=== PATIENT | male | born 1950 ===

== ENCOUNTER 2017-03-07 21:04 | Emergency (ER) | payer BC ==
[2017-03-07 21:33] LABS: BASOPHILS 0.5 % (0.0-2.0); EOSINOPHILS 1.3 % (0.0-6.0); EOSINOPHILS# 0.1 X 10^3uL (0.0-0.4); HEMATOCRIT 46.3 % (42.0-54.0); LYMPHOCYTES 28.5 % (20.0-40.0); LYMPHOCYTES# 1.6 X 10^3uL (0.8-3.8); MEAN CELL VOLUME 92.8 fL (80.0-100.0); MEAN CORPUS. HGB CONCENTRATION 34.6 g/dL (32.0-36.0); MEAN CORPUSCULAR HEMOGLOBIN 32.1 pg (29.0-35.0); MEAN PLATELET VOLUME 7.1 fL (7.4-10.4); MONOCYTES 16.8 % (2.0-10.0); MONOCYTES# 0.9 X 10^3uL (0.2-1.0); NEUTROPHILS 52.9 % (54.0-75.0); PLATELET COUNT 241 X 10^3uL (130-440); RED BLOOD COUNT 4.99 X 10^6uL (4.20-6.10); RED CELL DISTRIBUTION WIDTH 11.6 % (11.5-14.5); WHITE BLOOD COUNT 5.6 X 10^3uL (3.9-10.7)
[2017-03-07] MEDS ORDERED: NITROGLYCERIN 0.4 MG TAB.SUBL SUBLINGUAL ONE (21:36)
[2017-03-07] MEDS ORDERED: NORMAL SALINE 500 ML IV ONE (21:37)
[2017-03-07 21:48] LABS: BLOOD UREA NITROGEN 9 mg/dL (9-20); CALCIUM 9.5 mg/dL (8.4-10.2); CHLORIDE 102 mmol/L (98-107); EST GLOMERULAR FILTRATION RATE > 60 mL/min; GLUCOSE 112 mg/dL (70-100); MAGNESIUM 2.2 mg/dL (1.6-2.3); SODIUM 141 mmol/L (137-145)
[2017-03-07] MEDS ORDERED: NITROGLYCERIN OINT 1 GM PACKET ONE (21:57)
[2017-03-07] MEDS ORDERED: MAG-AL PLUS XS SUSP 30 ML UDC ONE (21:57)
[2017-03-07] MEDS ORDERED: LIDOCAINE VISCOUS 2% 15 ML UDC ONE (21:57)
[2017-03-07 22:00] LABS: TROPONIN I < 0.012 ng/mL (0.00-0.034)
--- NOTE | 2017-03-08 00:58 | ER NURSING DOCUMENTATION ---
Nurse's Notes [facility] Name:Miguelito Hernandez Age:66 yrs Sex:Male :1950 Arrival Date:03/07/2017 Time:21:03 BedTrauma-C Private MD: Diagnosis:Chest Pain;Non-Cardiac Chest Pain;Esophageal Spasm Presentation: 03/07 21:44 Presenting complaint: Patient states: Midsternal chest pain began today. No radiation. tg No SOB. Transition of care: patient was not received from another setting of care. AIR CAT ACTIVATION no. Asprin Given Given in ED 162 mg po. 21:44 Acuity: SHAHBAZ 2 tg 21:44 Method Of Arrival: Private Vehicle tg Triage Assessment: 09:05 General: Appears in no apparent distress, Behavior is cooperative, pleasant. Pain: tg Complains of pain in mid-sternal area Pain does not radiate. Quality of pain is described as dull. Neuro: Level of Consciousness is awake, alert. Cardiovascular: Capillary refill < 3 seconds Rhythm is sinus rhythm. Respiratory: Respiratory effort is even, unlabored, Breath sounds are clear bilaterally. GI: Denies nausea, Pt has had a richer diet than usual lately. Derm: Skin is dry, Skin temperature is warm. Historical: - Allergies: No known drug Allergies; - Home Meds: 1. Toprol XL Oral - PMHx: HYPERTENSION; - PSHx: KNEE SURGERY; - Tetanus: < 10 years. - Ebola Screening: : Patient negative for fever greater than or equal to 101.5 degrees Fahrenheit, and additional compatible Ebola Virus Disease symptoms. Patient denies exposure to infectious person. Patient denies travel to an Ebola-affected area in the 21 days before illness onset. No symptoms or risks identified at this time. . - Immunization history: Flu Vaccine unknown. - Social history: Smoking status: Patient states was never smoker of tobacco. Screenin:49 Infectious Disease Risk Unable to Obtain. Abuse screen: Denies threats or abuse. Denies tg injuries from another. Nutritional screening: No deficits noted. Assessment: 22:34 See Triage Assessment done by same RN. tg 03/08 00:56 Pain: Pain began. bw2 Vital Signs: 03/07 21:00 BP 180 / 92; Pulse 91; Resp 18; Temp 98(O); Pulse Ox 94% on R/A; Weight 77.11 kg (R); tg Height 5 ft. 6 in. (167.64 cm) (R); Pain 2/10; 21:06 Pulse 91 MON; Resp 20; Pulse Ox 94% ; tg 21:24 BP 139 / 93 (auto/); tg 21:45 BP 124 / 85 (auto/); tg 21:46 Pulse 81 MON; Resp 21; Pulse Ox 95% ; tg 22:00 BP 146 / 85 (auto/); tg 22:01 Pain 1/10; tg 22:01 Pulse 96 MON; Resp 32; Pulse Ox 93% ; tg 22:30 BP 126 / 80 (auto/); tg 22:31 Pulse 86 MON; Resp 20; Pulse Ox 94% ; tg 03/08 00:55 BP 133 / 78; Pulse 70; Resp 18; Temp 98(O); Pulse Ox 95% on R/A; Pain 0/10; bw2 03/07 21:00 Body Mass Index 27.44 (77.11 kg, 167.64 cm) tg Latta Coma Score: 03/07 21:47 Eye Response: spontaneous(4). Verbal Response: oriented(5). Motor Response: obeys cd commands(6). Total: 15. ED Course: 21:02 EKG done. (by ED staff). Reviewed by Chino Vasques MD. tg 21:03 Patient arrived in ED. em3 21:06 Chino Vasques MD is Attending Physician. cd 21:20 Inserted peripheral IV: 22 gauge in right antecubital area Missed attempts: 20 gauge X tg 1 Bleeding controlled, band aid applied, catheter tip intact. 21:29 Chuy Sanabria RN is Primary Nurse. tg 21:44 Triage completed. tg 21:50 Oxygen Oxygen administration via nasal cannula @ 2L/min. tg 21:50 Valuables Remains with patient. front desk monitor on. Pulse ox on. tg 22:35 Report given to SCAR Mullen. tg 23:19 EKG done. (by ED staff). Reviewed by Chino Vasques MD. em3 Administered Medications: 21:29 Drug: Aspirin Chewable Tablet 162 mg; Route: PO; tg 21:52 Follow up: Response: No adverse reaction tg 21:30 Drug: Nitroglycerin 0.4 mg; Route: Sublingual; tg 21:51 Follow up: Response: No adverse reaction; No change in condition tg 21:30 Drug: NS 0.9% 500 ml; Route: IV; Rate: bolus; Site: right antecubital; Delivery: tg [place] Tubing; 22:34 Follow up: IV Status: Completed infusion; IV Intake: 500ml tg 21:45 Drug: GI Cocktail w/o Donnatol - (Maalox Suspension 30 ml, Lidocaine Liquid 2 % 15 ml); tg Route: PO; 22:01 Follow up: Pain 09/22 Adult; Response: Pain is decreased tg 03/08 00:52 CANCELLED (Physician Discretion): omeprazole Delayed Release Capsule 20 mg PO once cd Intake: 03/07 22:34 IV: 500ml; Total: 500ml. tg Outcome: 03/08 00:31 Discharge ordered by . cd 00:55 Discharged to home ambulatory, with family. bw2 00:55 Condition: good 00:55 Discharge Assessment: Patient awake, alert and oriented x 3. No cognitive and/or functional deficits noted. Patient verbalized understanding of disposition instructions. 00:55 Discharge instructions given to patient, Instructed on discharge instructions, follow up and referral plans. Demonstrated understanding of instructions, Prescriptions given X 1. 00:56 Patient left the ED. bw2 09:59 Discharge F/U Call: Unable to reach: no answer lp Signatures: Chuy Sanabria RN RN Stephanie Collins RN RN Chino Vasques MD MD cd Meiklejohn, Eric 3 Paz Rodríguez bw2
--- NOTE | 2017-03-08 00:58 | ER PHYSICIAN DOCUMENTATION ---
Physician Documentation [facility] Name:Miguelito Hernandez Age:66 yrs Sex:Male :1950 Arrival Date:03/07/2017 Time:21:03 BedTrauma-C Private MD: Chino Wong Disposition: 03/08 00:30 Critical Care: not applicable. cd Disposition: 03/08/17 00:31 Discharged to Home/Self Care. Impression: Chest Pain, Non-Cardiac Chest Pain, Esophageal Spasm. - Condition is Good. - Discharge Instructions: CHEST PAIN, Noncardiac, ESOPHAGEAL SPASM. - Prescriptions for omeprazole 20 mg Oral capsule,delayed release(DR/EC) - take 1 capsule by ORAL route once daily; 20 capsule. - Medical Reconciliation form form. - Follow up: Private Physician; When: 7 - 10 days; Reason: Recheck today's complaints, Continuance of care. - Problem is new. - Symptoms are resolved. - Notes: Drink plenty of fluids. Omeprazole 20mg by mouth every day for 14 days. Low fat diet....avoid onions, chocolate, fatty foods and alcohol....they willrelax your lower esophageal sphincter and increase the chance of reflux. Try not to eat any thing after 6:00 PM at night. Eat a smaller evening meal. Contact your Talent Development Consultant at home for a Stress Echo this next week to assure you do not have CAD. HPI: 03/07 21:10 This 66 yrs old /[place] Male presents to ER via Private Vehicle with cd complaints of Chest Pain. 21:10 The patient or guardian reports chest pain that is located primarily in the substernal cd area. Onset: acutely, today. The pain does not radiate. There has been no movement of pain. Associated signs and symptoms: Pertinent positives: nausea, recent travel, Pertinent negatives: abdominal pain, cough, diaphoresis, dizziness, lower extremity pain, lower extremity swelling, lightheadedness, near syncope, palpitations, shortness of breath, syncope, vomiting. The chest pain is described as dull, a heaviness. Duration: The patient or guardian reports a single episode, that is still ongoing. Severity of pain: At its worst the pain was moderate a 5 / 10 in the emergency department the pain is unchanged. Risk factors for coronary artery disease include: This patient has a history of hypertension. The risk factors for pulmonary embolism include: This patient has been traveling recently. The patient has not experienced similar symptoms in the past. Historical: - Allergies: No known drug Allergies; - Home Meds: 1. Toprol XL Oral - PMHx: HYPERTENSION; - PSHx: KNEE SURGERY; - Tetanus: < 10 years. - Ebola Screening: : Patient negative for fever greater than or equal to 101.5 degrees Fahrenheit, and additional compatible Ebola Virus Disease symptoms. Patient denies exposure to infectious person. Patient denies travel to an Ebola-affected area in the 21 days before illness onset. No symptoms or risks identified at this time. . - Immunization history: Flu Vaccine unknown. - Social history: Smoking status: Patient states was never smoker of tobacco. ROS: 21:47 ENT: Negative for injury, pain, epistaxis and discharge. cd Neck: Negative for injury, pain, stiffness and swelling. Abdomen/GI: Negative for abdominal pain, nausea, vomiting, diarrhea, constipation, distension, melena, hematochezia and hematemesis. Back: Negative for injury, pain or muscle spasms. : Negative for injury, bleeding, discharge, swelling, dysuria, frequency or urgency. MS/Extremity: Negative for injury, deformity, edema, calf tenderness, pain or coldness. Skin: Negative for injury, rash, itching and discoloration. 21:47 Neuro: Negative for headache, weakness, numbness, tingling, and seizure. cd 21:47 Constitutional: Positive for poor PO intake, Negative for chills, fever. 21:47 Cardiovascular: Positive for chest pain, Negative for edema, orthopnea, palpitations. 21:47 Respiratory: Negative for cough, dyspnea on exertion, pleurisy, shortness of breath. 21:47 All other systems are negative. Exam: ENT: Nares patent. No nasal discharge, no septal abnormalities noted. Tympanic membranes are normal and external auditory canals are clear. Oropharynx with no redness, swelling, or masses, exudates, or evidence of obstruction, uvula midline. Mucous membranes dry Neck: Trachea midline, no thyromegaly or masses palpated, and no cervical lymphadenopathy. Supple, full range of motion without nuchal rigidity, or vertebral point tenderness. No Meningismus. Chest/axilla: Normal chest wall appearance and motion. Nontender with no deformity. No lesions are appreciated. Abdomen/GI: Soft, non-tender, with normal bowel sounds. No distension or tympany. No guarding or rebound. No evidence of tenderness throughout. Back: No spinal tenderness. No costovertebral tenderness. Full range of motion. Skin: Warm, dry with normal turgor. Normal color with no rashes, no lesions, and no evidence of cellulitis. MS/ Extremity: Pulses equal, no cyanosis. Neurovascular intact. Full, normal range of motion. 21:47 Neuro: Awake and alert, GCS 15, oriented to person, place, time, and situation. cd Cranial nerves II-XII grossly intact. Motor strength 5/5 in all extremities. Sensory grossly intact. Cerebellar exam normal. Normal gait. 21:47 Constitutional: The patient appears alert, awake, non-diaphoretic, non-toxic, well developed, well nourished, anxious, in obvious distress, moderately distressed. 21:47 Cardiovascular: Rate: normal, Rhythm: regular, Pulses: no pulse deficits are appreciated, Heart sounds: normal, Edema: is not appreciated. 21:47 Respiratory: the patient does not display signs of respiratory distress, Respirations: normal, no acute changes, Breath sounds: are normal, clear throughout. Vital Signs: 21:00 BP 180 / 92; Pulse 91; Resp 18; Temp 98(O); Pulse Ox 94% on R/A; Weight 77.11 kg (R); tg Height 5 ft. 6 in. (167.64 cm) (R); Pain 2/10; 21:06 Pulse 91 MON; Resp 20; Pulse Ox 94% ; tg 21:24 BP 139 / 93 (auto/); tg 21:45 BP 124 / 85 (auto/); tg 21:46 Pulse 81 MON; Resp 21; Pulse Ox 95% ; tg 22:00 BP 146 / 85 (auto/); tg 22:01 Pain 1/10; tg 22:01 Pulse 96 MON; Resp 32; Pulse Ox 93% ; tg 22:30 BP 126 / 80 (auto/); tg 22:31 Pulse 86 MON; Resp 20; Pulse Ox 94% ; tg 03/08 00:55 BP 133 / 78; Pulse 70; Resp 18; Temp 98(O); Pulse Ox 95% on R/A; Pain 0/10; bw2 03/07 21:00 Body Mass Index 27.44 (77.11 kg, 167.64 cm) tg Lora Coma Score: 03/07 21:47 Eye Response: spontaneous(4). Verbal Response: oriented(5). Motor Response: obeys cd commands(6). Total: 15. MDM: 21:06 Patient medically screened. cd 21:20 Data interpreted: monitoring specialist: rate is 70 beats/min, rhythm is normal sinus rhythm, cd regular, with no ectopy, Interpretation: normal rate, normal rhythm, Pulse oximetry: on room air is 95 %. Interpretation: normal. ECG:. 21:35 Patient took aspirin in the Emergency Department. Patient did not receive fibrinolytic cd due to not warranted. CINDY Risk Score: TOTAL SCORE = 0. 22:00 Differential diagnosis: acute myocardial infarction, acute pericarditis, anxiety, cd coronary artery disease chest wall pain, costochondritis, esophagitis, pericarditis, pulmonary embolus. 22:30 Data reviewed: vital signs, nurses notes, old medical records, lab test result(s), EKG, cd radiologic studies, and as a result, I will continue to observe the patient, administer IV fluids, NS bolus, NS maintenence, and will repeat the EKG and Troponin 2 hours after the first set.. 03/08 00:15 Response to treatment: the patient's symptoms have markedly improved after treatment, cd the patient's condition has returned to base line, the patient is now symptom free, patient is well hydrated. and as a result, I will discharge patient. 00:20 Counseling: I had a detailed discussion with the patient and/or guardian regarding: the cd historical points, exam findings, and any diagnostic results supporting the discharge/admit diagnosis, lab results, radiology results, the need for outpatient follow up, for a recheck, for a referral to a specialist, a moving consultant, to return to the emergency department if symptoms worsen or persist or if there are any questions or concerns that arise at home. 03/07 21:39 Order name: CBC AUTO DIF, MDIF/RMOR IF IND; Complete Time: 00:30 EDMS 03/07 22:05 Interpretation: Normal. cd 03/07 21:50 Order name: BASIC METABOLIC PANEL; Complete Time: 00:30 EDMS 03/07 22:05 Interpretation: Normal. cd 03/07 21:50 Order name: MAGNESIUM; Complete Time: 00:30 EDMS 03/07 22:05 Interpretation: Normal. 03/07 22:00 Order name: TROPONIN I; Complete Time: 00:30 EDMS 03/07 22:05 Interpretation: Normal. 03/07 22:38 Order name: DDIMER; Complete Time: 00:30 EDMS 03/08 00:29 Interpretation: Normal. 03/07 22:52 Order name: PROTIME/INR; Complete Time: 00:30 EDMS 03/08 00:29 Interpretation: Normal. 03/08 00:04 Order name: TROPONIN I; Complete Time: 00:30 EDMS 03/08 00:30 Interpretation: Normal. 03/09 18:29 Order name: CHEST; SINGLE VIEW [id number]; Complete Time: 00:39 EDMS 03/10 00:39 Interpretation: Normal. 03/07 21:07 Order name: 12-lead EKG; Complete Time: 21:30 03/07 21:07 Order name: Iv Saline Lock; Complete Time: 21:30 03/07 21:07 Order name: Place Patient On Monitor; Complete Time: 21:30 03/07 21:07 Order name: Pulse Ox Continuous; Complete Time: 21:30 03/07 21:07 Order name: Oxygen; Complete Time: 21:38 03/07 23:03 Order name: 12-lead EKG; Complete Time: 23:49 tg Dispensed Medications: 03/07 21:29 Drug: Aspirin Chewable Tablet 162 mg; Route: PO; tg 21:52 Follow up: Response: No adverse reaction tg 21:30 Drug: Nitroglycerin 0.4 mg; Route: Sublingual; tg 21:51 Follow up: Response: No adverse reaction; No change in condition tg 21:30 Drug: NS 0.9% 500 ml; Route: IV; Rate: bolus; Site: right antecubital; Delivery: tg [place] Tubing; 22:34 Follow up: IV Status: Completed infusion; IV Intake: 500ml tg 21:45 Drug: GI Cocktail w/o Donnatol - (Maalox Suspension 30 ml, Lidocaine Liquid 2 % 15 ml); tg Route: PO; 22:01 Follow up: Pain / Adult; Response: Pain is decreased tg 03/08 00:52 CANCELLED (Physician Discretion): omeprazole Delayed Release Capsule 20 mg PO once cd Signatures: Chuy Sanabria RN RN tg Chino Vasques MD MD cd Wisely, Beth 2
--- NOTE | 2017-03-09 17:02 | RADIOLOGY REPORT ---
A limited single portable view of the chest demonstrates the heart and vessels to be unremarkable. Lung mcpherson are clear. IMPRESSION: No acute cardiopulmonary abnormality. MTDD
== END 2017-03-08 00:57 | disposition home or self-care (01) ==
LOC: ER 21:04
DX: R07.89 Other chest pain (principal); K22.4 Dyskinesia of esophagus; R11.0 Nausea; E86.0 Dehydration; I10 Essential (primary) hypertension; Z79.899 Other long term (current) drug therapy
CPT/HCPCS: 71010; 80048; 83735; 84484; 85025; 85379; 85610; 93005; 96360; 99285; J7040